=== PATIENT | male | born 1985 | race Caucasian/White ===

== ENCOUNTER 2016-11-19 23:03 | Emergency (ER) | payer OTHER ==
[2016-11-20 00:08] VITALS: BP 107/71; PULSE 68; TEMP 98; BMI 22.8
[2016-11-20] MEDS ORDERED: SODIUM CHLORIDE 1,000 ML IV STA (00:26)
--- NOTE | 2016-11-20 02:26 | PDOC ---
History of Present Illness - General Chief Complaint: Cold Symptoms Stated Complaint: DIFF BREATHING/WHEEZING Time Seen by Provider: 11/20/16 00:12 History Source: Patient Exam Limitations: No Limitations - History of Present Illness Initial Comments: 11/20/16 02:21 31yo Male patient w/ PmHx: Sinusitis, Bronchitis presents to ED c/o worsening symptoms. Patient reports visiting with PCP and prescribed a "PCN-based Abx." He states that after taking a few doses, he believed he was having a reaction to the medication. Patient then went to urgent care, where he was told he has an ear infection and prescribe Biaxin. Patient now reporting reaction to this medication as well. He denies any other complaints at this time. Timing/Duration: reports: week Severity: reports: mild Episode Description: See HPI Possible Cause: Yes: occasional episodes Modifying Factors: improves with: antibiotics Associated Symptoms: reports: facial pain Aspirin Received prior to arrival: No: no aspirin today, unknown, 81 mg x 1, 81 mg x 2, 81 mg x 3, 81 mg x 4, 325 mg x 1, provided at home, provided by EMS, provided by ED ASA Contraindications(Core Measure): No: Allergy, Other, Active Blding w/i 24 hrs., Plavix, Receiving Warfarin Past History - Travel Traveled outside of the country in the last 30 days: No Close contact w/someone who was outside of country & ill: No - Past Medical History Allergies/Adverse Reactions: Allergies Allergy/AdvReac Type Severity Reaction Status Date / Time Penicillins Allergy Hives Verified 11/19/16 23:55 Home Medications: Ambulatory Orders Cetirizine HCl [Zyrtec -] 10 mg PO DAILY 01/05/15 Montelukast Na [Singulair -] 10 mg PO HS 01/05/15 Naproxen [Naprosyn -] 500 mg PO BID #14 tablet 01/30/15 Oxycodone HCl/Acetaminophen [Percocet 5-325 mg Tablet] 1 tab PO Q4H #20 tablet 01/30/15 Tamsulosin HCl [Flomax -] 0.4 mg PO DAILY #14 capsule 01/30/15 Ondansetron [Zofran *Odt*] 8 mg SL TID PRN #14 od.tablet 12/31/15 Budesonide [Rhinocort Allergy] 1 spr NS DAILY #1 spray.pump 11/20/16 Asthma: Yes Kidney Stones: Yes Suicide Attempt (Hx): No - Immunization History Immunization Up to Date: No - Psycho/Social/Smoking Cessation Hx Anxiety: No Suicidal Ideation: No Smoking Status: No Smoking History: Never smoked Have you smoked in the past 12 months: No Number of Cigarettes Smoked Daily: 0 Information on smoking cessation initiated: No Hx Alcohol Use: No Drug/Substance Use Hx: No Substance Use Type: None Respiratory Specific PMHX - Complaint Specific PMHX Angina: No Bronchitis: Yes Pneumonia: No Pulmonary Embolus: No TB (Tuberculosis): No Review of Systems - Review of Systems Able to Perform ROS?: Yes Is the patient limited Maldivian proficient: No Constitutional: No: Chills, Fever HEENTM: Yes: Ear Pain, Other (Sinus Pain) Respiratory: No: Cough, Wheezing Cardiac (ROS): No: Chest Pain, Palpitations, Syncope, Chest Tightness ABD/GI: No: Diarrhea, Nausea, Vomiting : No: Burning, Dysuria, Hematuria Musculoskeletal: No: Back Pain Neurological: No: Headache, Seizure, Tingling, Tremors, Weakness, Ataxia, Dizziness All Other Systems: Reviewed and Negative *Physical Exam - Vital Signs Last Vital Signs Temp Pulse Resp BP Pulse Ox 98.0 F 68 14 107/71 97 11/19/16 23:56 11/19/16 23:56 11/19/16 23:56 11/19/16 23:56 11/19/16 23:56 - Physical Exam General Appearance: Yes: Nourished, Appropriately Dressed. No: Apparent Distress, Mild Distress, Moderate Distress, Severe Distress HEENT: positive: EOMI, PAMELA, Normal ENT Inspection, Normal Voice, Symmetrical, TMs Normal, Pharynx Normal, Nasal Congestion, Other (Bilateral nares turbinates swollen with mild erythema. No discharge or drainage.). negative: Pharyngeal Erythema, Tonsillar Exudate, Tonsillar Erythema, Rhinorrhea, Sinus Tenderness, TM Bulging, TM Dull, TM Erythema, Excessive drooling Neck: positive: Trachea midline, Normal Thyroid, Supple. negative: Stridor, Lymphadenopathy (R), Lymphadenopathy (L), Tender lateral, Tender midline Respiratory/Chest: positive: Lungs Clear, Normal Breath Sounds. negative: Chest Tender, Respiratory Distress, Accessory Muscle Use, Labored Respiration, Rapid RR Cardiovascular: positive: Regular Rhythm, Regular Rate Gastrointestinal/Abdominal: positive: Normal Bowel Sounds, Soft. negative: Distended, Guarding, Rebound, Tenderness Musculoskeletal: positive: Normal Inspection. negative: CVA Tenderness Extremity: positive: Normal Capillary Refill, Normal Inspection, Normal Range of Motion. 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, Fully Oriented, Alert, Normal Mood/ Affect, Normal Response, Motor Strength 10/07 ED Treatment Course - RADIOLOGY Radiology Studies Ordered: Category Date Time Status SINUS CT W/O CONTRAST [CT] Stat CT Scan 11/20/16 00:25 Taken *DC/Admit/Observation/Transfer Diagnosis at time of Disposition: Upper respiratory tract infection Qualifiers: URI type: unspecified viral URI Qualified Code(s): J06.9 - Acute upper respiratory infection, unspecified; B97.89 - Other viral agents as the cause of diseases classified elsewhere - Discharge Dispostion Disposition: HOME Condition at time of disposition: Stable Admit: No - Prescriptions Prescriptions: Budesonide [Rhinocort Allergy] 1 spr NS DAILY #1 spray.pump - Patient Instructions Printed Discharge Instructions: DI for Viral Upper Respiratory Infection -- Adult Additional Instructions: FOLLOW UP WITH DR. LOZADA THIS WEEK FOR FURTHER EVALUATION. DRINK PLENTY FLUIDS AND REST. MOTRIN OR TYLENOL FOR SYMPTOMS. Print Language: TUNISIAN
[2016-11-20 02:38] LABS: BASOPHIL 0.6 % (0-2.0); EOSINOPHIL 0.5 % (0-4.5); MCH 30.7 pg (25.7-33.7); MCHC 34.4 g/dl (32.0-35.9); MEAN CELL VOLUME 89.2 fl (80-96); MEAN PLT VOLUME 8.5 fl (7.5-11.1); NEUTROPHILS 78.2 % (42.8-82.8); PLATELET COUNT 175 K/MM3 (134-434); RDW 12.8 % (11.9-15.9); WHITE BLOOD COUNT 14.1 K/mm3 (4.0-10.0)
[2016-11-20 03:09] LABS: ANION GAP 12 (8-16); CALCIUM 8.9 mg/dL (8.5-10.1); CO2 25 mmol/L (21-32); CREATININE 1.1 mg/dL (0.7-1.3); GLUCOSE,RANDOM 93 mg/dL (74-106)
== END 2016-11-20 03:29 | disposition home or self-care (01) ==
LOC: JER 23:03
PROC: 3E0337Z Introduction of Electrolytic and Water Balance Substance into Peripheral Vein, Percutaneous Approach (ICD-10-PCS; principal; 2016-11-19)
DX: J06.9 Acute upper respiratory infection, unspecified (principal); B97.89 Other viral agents as the cause of diseases classified elsewhere
CPT/HCPCS: 36415; 70486-TC; 80048; 85025; 99281-25; 99282-25

== ENCOUNTER 2018-03-23 05:32 | Emergency (ER) | payer OTHER ==
[2018-03-23 06:11] LABS: BASO % 1.1 % (0-2.0); EOS % 1.7 % (0-4.5); HEMATOCRIT 50.2 % (35.4-49); HEMOGLOBIN 17.1 GM/dL (11.7-16.9); LYMPH % 21.7 % (8-40); MCH 30.8 pg (25.7-33.7); MCHC 34.1 g/dl (32.0-35.9); MEAN CELL VOLUME 90.1 fl (80-96); MEAN PLT VOLUME 7.9 fl (7.5-11.1); MONO % 7.6 % (3.8-10.2); NEUT % 67.9 % (42.8-82.8); PLATELET COUNT 263 K/MM3 (134-434); RBC 5.57 M/mm3 (4.00-5.60); RDW 13.5 % (11.9-15.9); WHITE BLOOD COUNT 8.4 K/mm3 (4.0-10.0)
[2018-03-23] MEDS ORDERED: ONDANSETRON *ODT* 4 MG TABLET SL ONE (06:13)
[2018-03-23] MEDS ORDERED: ONDANSETRON 4 MG/2 ML VIAL ONE ×3 (06:13→09:08)
[2018-03-23 06:14] LABS: URINE APPEARANCE CLOUDY; URINE BILIRUBIN NEGATIVE (<2.0 mg/dL); URINE COLOR YELLOW; URINE GLUCOSE (UA) NEGATIVE (NEGATIVE); URINE KETONE NEGATIVE (NEGATIVE); URINE LEUK ESTERASE NEGATIVE (NEGATIVE); URINE NITRITE NEGATIVE (NEGATIVE); URINE PROTEIN NEGATIVE (NEGATIVE); URINE UROBILINOGEN NEGATIVE mg/dL (0.2-1.0)
[2018-03-23 06:31] VITALS: BMI 25.0
[2018-03-23 07:14] LABS: ALBUMIN 4.5 g/dl (3.4-5.0); ALK PHOS 77 U/L (45-117); ANION GAP 9 MMOL/L (8-16); BILIRUBIN,TOTAL 0.8 mg/dL (0.2-1); BLOOD UREA NITROGEN 17 mg/dL (7-18); CALCIUM 9.4 mg/dL (8.5-10.1); CHLORIDE 102 mmol/L (98-107); CO2 28 mmol/L (21-32); GLUCOSE,RANDOM 99 mg/dL (74-106); POTASSIUM 3.8 mmol/L (3.5-5.1); SGOT/AST 21 U/L (15-37); SGPT/ALT 25 U/L (13-61); SODIUM 138 mmol/L (136-145); TOT PROT 7.7 g/dl (6.4-8.2)
[2018-03-23] MEDS ORDERED: SODIUM CHLORIDE 1,000 ML IV STA (07:48)
[2018-03-23] MEDS ORDERED: KETOROLAC TROMETHAMINE 30 MG/1 ML VIAL IVPUSH ONE (07:48)
--- NOTE | 2018-03-23 07:48 | PDOC ---
Attending Attestation - Resident Resident Name: Kevin Mays - ED Attending Attestation I have performed the following: I have examined & evaluated the patient, The case was reviewed & discussed with the resident, I agree w/resident's findings & plan, Exceptions are as noted - HPI HPI: 32 yo M history kidney stones presents with abrupt onset L sided flank pain radiating to groin. Associated with nausea, no vomiting. no diarrhea, no fever. - Physicial Exam PE: GENERAL: Awake, alert, and fully oriented, in no acute distress HEAD: No signs of trauma EYES: PERRLA, EOMI, sclera anicteric, conjunctiva clear ENT: Auricles normal inspection, hearing grossly normal, nares patent, oropharynx clear without exudates. Moist mucosa NECK: Normal ROM, supple, no lymphadenopathy, JVD, or masses LUNGS: Breath sounds equal, clear to auscultation bilaterally. No wheezes, and no crackles HEART: Regular rate and rhythm, normal S1 and S2, no murmurs, rubs or gallops ABDOMEN: Soft, +BLQ tenderness, normoactive bowel sounds. No guarding, no rebound. No masses. +L CVAT. EXTREMITIES: Normal range of motion, no edema. No clubbing or cyanosis. No cords, erythema, or tenderness NEUROLOGICAL: Cranial nerves II through XII grossly intact. Normal speech, normal gait SKIN: Warm, Dry, normal turgor, no rashes or lesions noted. - Medical Decision Making Pt with history of kidney stones presenting with L sided abd pain. Gave toradol with some improvement in pain. Also gave zofran for nausea. Pain resolved after percocet, but it did cause some lethargy. Sono obtained, no signs of hydro. Stable for DC home.
[2018-03-23] MEDS ORDERED: KETOROLAC TROMETHAMINE 30 MG/1 ML VIAL ONE (07:54)
--- NOTE | 2018-03-23 08:04 | PDOC ---
History of Present Illness - General Chief Complaint: Pain, Acute Stated Complaint: PAIN,KIDNEY STONE Time Seen by Provider: 03/23/18 07:13 History Source: Patient - History of Present Illness Initial Comments: 32 y/o M w/PMH of childhood asthma, nephrolithiasis (4 stones in the past, s/p lithotripsy x2) presents to the ER with L sided abdominal/flank pain. Pain started suddenly last night and started in L flank and radiates to L groin and now also has pain in R groin. He felt nauseous at the time but was unable to vomit. Pain was 10/10 and now is at a 4/10. He took zofran and xanax with some relief last night. He has noticed decrease ability to urinate since last night and has only had a few drops of urine come out when he last tried approximately 10 min ago. No blood in urine but he does have some burning with urination. He denies fevers, chills, JEAN, light-headedness, SOB, CP, LE edema. PMH: nephrolithiasis (4 stones in the past, s/p lithotripsy x2) PSHx: lithotripsy x2 Allergies: Penicillins - hives Meds: Xanax PRN, Zofran PRN Past History - Past Medical History Allergies/Adverse Reactions: Allergies Allergy/AdvReac Type Severity Reaction Status Date / Time Penicillins Allergy Hives Verified 03/23/18 06:01 Home Medications: Ambulatory Orders Cetirizine HCl [Zyrtec -] 10 mg PO DAILY 01/05/15 Montelukast Na [Singulair -] 10 mg PO HS 01/05/15 Budesonide [Rhinocort Allergy] 1 spr NS DAILY #1 spray.pump 11/20/16 Ibuprofen 600 mg PO TID PRN #15 tablet 03/23/18 Asthma: Yes COPD: No Kidney Stones: Yes - Immunization History Immunization Up to Date: Yes - Suicide/Smoking/Psychosocial Hx Smoking Status: No Smoking History: Never smoked Have you smoked in the past 12 months: No Number of Cigarettes Smoked Daily: 0 Information on smoking cessation initiated: No Hx Alcohol Use: No Drug/Substance Use Hx: No Substance Use Type: None Review of Systems - Review of Systems Able to Perform ROS?: Yes Constitutional: No: Chills, Fever Respiratory: No: Shortness of Breath Cardiac (ROS): No: Lightheadedness ABD/GI: Yes: Other (L flank and L abd pain. R groin pain.) : Yes: Dysuria, Flank Pain, Other (inability to urinate). No: Hematuria Neurological: No: Headache, Dizziness *Physical Exam - Vital Signs Last Vital Signs Temp Pulse Resp BP Pulse Ox 97.9 F 72 18 139/78 99 03/23/18 05:36 03/23/18 05:36 03/23/18 05:36 03/23/18 05:36 03/23/18 05:36 - Physical Exam General Appearance: Yes: Nourished, Appropriately Dressed. No: Apparent Distress HEENT: positive: EOMI Neck: positive: Supple Respiratory/Chest: positive: Lungs Clear, Normal Breath Sounds. negative: Respiratory Distress Cardiovascular: positive: Regular Rhythm, Regular Rate, S1, S2. 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, Alert ED Treatment Course - LABORATORY CBC & Chemistry Diagram: 03/23/18 05:49 03/23/18 05:49 - ADDITIONAL ORDERS Additional order review: Laboratory Results 03/23/18 03/23/18 05:49 05:49 Sodium 138 Potassium 3.8 Chloride 102 Carbon Dioxide 28 Anion Gap 9 BUN 17 Creatinine 1.0 Creat Clearance w eGFR > 60 Random Glucose 99 Calcium 9.4 Total Bilirubin 0.8 AST 21 ALT 25 Alkaline Phosphatase 77 Total Protein 7.7 Albumin 4.5 Urine Color Yellow Urine Appearance Cloudy Urine pH 7.0 Ur Specific Stanton 1.011 Urine Protein Negative Urine Glucose (UA) Negative Urine Ketones Negative Urine Blood Negative Urine Nitrite Negative Urine Bilirubin Negative Urine Urobilinogen Negative Ur Leukocyte Esterase Negative 03/23/18 05:49 RBC 5.57 MCV 90.1 MCHC 34.1 RDW 13.5 MPV 7.9 Neutrophils % 67.9 Lymphocytes % 21.7 D Monocytes % 7.6 Eosinophils % 1.7 D Basophils % 1.1 - Medications Given in the ED: ED Medications Discontinued Medications Generic Name Dose Route Start Last Admin Trade Name Freq PRN Reason Stop Dose Admin Ondansetron HCl 4 mg 03/23/18 06:13 03/23/18 06:16 Zofran Odt - SL 03/23/18 06:14 4 mg ONCE ONE Administration Medical Decision Making - Medical Decision Making 03/23/18 08:06 Pt has received 1 L NS, zofran, toradol CBC with H/H 17/50 likely secondary to dehydration CMP unremarkble UA negative Will check U/S kidney and bladder 03/23/18 09:30 Renal/Bladder U/S: Impression: Architectural distortion in the center of the left kidney again seen for which further evaluation with pre and postcontrast CT scan or MRI of the kidneys is recommended. Adequately distended urinary bladder without wall thickening. Bilateral uterine jets were identified. Large post void urine residue of 210 cc. Enlarged prostate gland with a volume of 61.7 cc and with likely a calcification on the left measuring 1 cm. 03/23/18 10:33 Pt also given percocet 5/325 for further pain relief. 03/23/18 11:03 Pt feeling much better. Urinating better with no blood in urine and emptying more. Pt instructed to f/u with urologist in the next 2-3 days. Pt instructed to take ibuprofen 600 mg as needed up to 3 times per day for pain. Pt instructed to come back to the ER if he develops worsening of current symptoms or onset of new concerning symptoms. *DC/Admit/Observation/Transfer Diagnosis at time of Disposition: Kidney stone - Discharge Dispostion Disposition: HOME Condition at time of disposition: Stable Decision to Admit order: No - Prescriptions Prescriptions: Ibuprofen 600 mg PO TID PRN #15 tablet PRN Reason: Pain - Referrals Referrals: Freddy Thomas MD [Primary Care Provider] - - Patient Instructions Printed Discharge Instructions: Kidney Stones -- Adult Additional Instructions: Follow up with your urologist in the next 2-3 days. If you develop worsening of your current symptoms or have onset of new concerning symptoms come back to the ER. You have been prescribed ibuprofen 600 mg to take up to 3 times per day as needed for pain. Only take this medication if you have pain. Take this medication with food and plenty of water. - Post Discharge Activity
[2018-03-23] MEDS ORDERED: ONDANSETRON 4 MG/2 ML VIAL IVPUSH ONE (08:24)
[2018-03-23 11:17] VITALS: BP 108/72; PULSE 69; TEMP 98
== END 2018-03-23 11:16 | disposition home or self-care (01) ==
LOC: JER 05:32
PROC: 3E033GC Introduction of Other Therapeutic Substance into Peripheral Vein, Percutaneous Approach (ICD-10-PCS; principal; 2018-03-23)
PROC: 3E0333Z Introduction of Anti-inflammatory into Peripheral Vein, Percutaneous Approach (ICD-10-PCS; 2018-03-23)
DX: N20.0 Calculus of kidney (principal); Z87.442 Personal history of urinary calculi
CPT/HCPCS: 36415; 76775-TC; 76856-TC; 80053; 81003; 85025; 87086; 99283-25; J7030; Q0162

== ENCOUNTER 2022-09-22 03:53 | Day surgery (SDC) | payer BC ==
[2022-09-20 16:40] VITALS: BMI 27.3
[2022-09-22] MEDS ORDERED: LIDOCAINE HCL 1%, 10 MG/ML (10ML VIAL) MDV ONE (07:25)
[2022-09-22] MEDS ORDERED: BUPIVACAINE HCL/PF 0.5% (5MG/ML) 10 ML VIAL ONE ×2 (07:25→10:04)
[2022-09-22] MEDS ORDERED: ONDANSETRON 4 MG/2 ML VIAL ONE (09:36)
[2022-09-22] MEDS ORDERED: KETAMINE HCL 500 MG/10 ML VIAL ONE (09:36)
[2022-09-22] MEDS ORDERED: MIDAZOLAM HCL 2 MG/2 ML SINGLE DOSE VIAL ONE (09:36)
[2022-09-22] MEDS ORDERED: ONDANSETRON 4 MG/2 ML VIAL IVPUSH PRN (09:43)
[2022-09-22] MEDS ORDERED: ACETAMINOPHEN 325 MG TABLET (FP) PO PRN (09:43)
[2022-09-22] MEDS ORDERED: oxyCODONE HCL 5 MG TABLET PO PRN (09:43)
[2022-09-22] MEDS ORDERED: LACTATED RINGERS SOLUTION 1,000 ML IV SCH ×2 (09:45→12:00)
[2022-09-22] MEDS ORDERED: DEXMEDETOMIDINE HCL 200 MCG/2 ML IVPB ONE (09:46)
[2022-09-22] MEDS ORDERED: ceFAZolin SODIUM 1 GM VIAL IVPB ONE (10:10)
[2022-09-22] MEDS ORDERED: PROPOFOL 20 ML ONE (10:22)
[2022-09-22] MEDS ORDERED: LIDOCAINE 2%/EPINEPHRINE 1:100000 (50 ML MD VIAL) INF ONE ×2 (10:28)
[2022-09-22] MEDS ORDERED: BUPIVACAINE HCL/PF 0.5% (5MG/ML) 10 ML VIAL IJ ONE ×4 (10:28→10:32)
[2022-09-22] MEDS ORDERED: KETOROLAC TROMETHAMINE 30 MG/1 ML VIAL ONE (11:13)
[2022-09-22 13:34] VITALS: RESP 16
[2022-09-22 15:00] VITALS: BP 91/56; PULSE 76; TEMP 98
== END 2022-09-22 15:22 | disposition home or self-care (01) ==
LOC: JASU-SURG 03:53
PROVIDERS: ATTEND Surgery
PROC: 0JBC0ZZ Excision of Pelvic Region Subcutaneous Tissue and Fascia, Open Approach (ICD-10-PCS; 2022-09-22)
PROC: 0JBF0ZZ Excision of Left Upper Arm Subcutaneous Tissue and Fascia, Open Approach (ICD-10-PCS; 2022-09-22)
PROC: 0JB70ZZ Excision of Back Subcutaneous Tissue and Fascia, Open Approach (ICD-10-PCS; principal; 2022-09-22 09:30)
DX: D17.22 Benign lipomatous neoplasm of skin and subcutaneous tissue of left arm (principal); D17.1 Benign lipomatous neoplasm of skin and subcutaneous tissue of trunk; D17.79 Benign lipomatous neoplasm of other sites
CPT/HCPCS: 88305-TC; 94760